=== PATIENT | female | born 1955 | race African-American/Black ===

== ENCOUNTER 2021-01-31 05:41 | Inpatient (IN) | payer OTHER ==
[~2021-01-31] VITALS: Ht 175.3 cm; Wt 150.6 kg
[~2021-01-31 05:41] MED LIST: ASPI-986 PO; LEVO25TA7 PO; LISI1TAB13 PO; METF-414 PO; PRAV10TA35 PO
[2021-01-31] MEDS ORDERED: METHYLPREDNISOLONE SOD SUCC 125 MG/2 ML VIAL IV STA (05:49)
[2021-01-31] MEDS ORDERED: EPINEPHRINE 1:1000 1 MG/ML AMP IM ONE (06:00)
[2021-01-31] MEDS ORDERED: FAMOTIDINE 20MG/2ML VIAL IV ONE (06:00)
[2021-01-31] MEDS ORDERED: MAGNESIUM 2 G PREMIX 50 ML IV ONE (06:00)
[2021-01-31] MEDS ORDERED: DIPHENHYDRAMINE 50MG/ML VIAL IV ONE (06:00)
[2021-01-31 06:16] LABS: CHLORIDE 102 mEq/L (98-107)
[2021-01-31 06:20] LABS: ETHANOL BLOOD < 10 mg/dL
[2021-01-31] MEDS ORDERED: ASPIRIN 81MG TABLET PO ONE (06:30)
[2021-01-31] MEDS ORDERED: VANCOMYCIN 1 G PREMIX 200 ML IV ONE (06:30)
[2021-01-31] MEDS ORDERED: PIPERACILLIN/TAZ 3.375G PREMIX 50 ML IV ONE (06:30)
[2021-01-31] MEDS ORDERED: FUROSEMIDE 40MG/4ML VIAL IV ONE (06:30)
[2021-01-31] MEDS ORDERED: ACETAMINOPHEN 325MG TABLET PO ONE (06:30)
[2021-01-31] MEDS ORDERED: NITROGLYCERIN OINT 1GM/INCH UDPKT TD ONE (06:30)
[2021-01-31 06:36] LABS: BASOPHILS % 0.4 % (0.0-2.0); EOSINOPHILS % 0.5 % (0.0-5.0); HEMATOCRIT. 36.1 % (36.0-48.0); HEMOGLOBIN. 11.6 g/dL (12.0-16.0); LYMPHOCYTES % 12.8 % (20.0-50.0); MEAN CORPUSCULAR HEMOGLOBIN 30.1 pg (28.0-32.0); MEAN CORPUSCULAR VOLUME 93.3 fL (81.0-99.0); MEAN PLATELET VOLUME 9.8 fl (7.4-10.4); MONOCYTES % 5.3 % (2.0-8.0); PLATELET 217 x1000/uL (130-400); RED BLOOD CELL COUNT 3.87 mill/uL (4.2-5.4); RED CELL DISTRIBUTION WIDTH 16.4 % (11.6-14.6)
[2021-01-31] MEDS ORDERED: ENOXAPARIN 150MG/ML SYR SUBCUT ONE (07:45)
[2021-01-31 08:17] LABS: CLARITY URINE CLEAR (CLEAR); COLOR URINE YELLOW (YELLOW); KETONES URINE NEGATIVE (NEGATIVE); LEUKOCYTE ESTERASE URINE NEGATIVE (NEGATIVE); NITRITE URINE NEGATIVE (NEGATIVE); OCCULT BLOOD URINE 1+ (NEGATIVE); PROTEIN URINE 3+ (NEGATIVE); SPECIFIC GRAVITY URINE 1.013 (1.005-1.030); UROBILINOGEN URINE 0.2 E.U./dL (0.2-1.0)
[2021-01-31 08:45] LABS: *AMPHETAMINES SCREEN URINE NEGATIVE (NEGATIVE); *BARBITURATES SCREEN URINE NEGATIVE (NEGATIVE); PHENCYCLIDINE URINE SCREEN NEGATIVE (NEGATIVE)
[2021-01-31 08:46] LABS: *BENZODIAZEPINES SCREEN URINE NEGATIVE (NEGATIVE); *COCAINE SCREEN URINE NEGATIVE (NEGATIVE); CANNABINOID URINE SCREEN NEGATIVE (NEGATIVE); METHADONE URINE SCREEN NEGATIVE (NEGATIVE); OPIATES URINE SCREEN NEGATIVE (NEGATIVE)
[2021-01-31 09:09] LABS: BG BASE EXCESS 0.8 mmol/L (-2.0-2.0); BG CARBOXYHEMOGLOBIN 0.3 % (0.5-1.5); BG DEOXYHEMOGLOBIN 3.4 % (0.0-5.0); BG HCO3 ACT 26.6 mmol/L (22.0-26.0); BG METHEMOGLOBIN 0.5 % (0.0-1.5); BG OXYGEN SATURATION 96.6 % (92.0-98.5); BG OXYHEMOGLOBIN 95.8 % (94.0-97.0); BG PH 7.362 (7.350-7.450); BG PO2 91.1 mmHg (75.0-100.0); BG SAMPLE SITE RIGHT RADIAL; BG TOTAL HEMOGLOBIN 11.5 g/dL (12.0-18.0); BG VENT MODE MASK - SIMPLE
[2021-01-31] MEDS ORDERED: ALBUTEROL 6.7GM HFA INHALER ORI PRN (09:30)
[2021-01-31] MEDS ORDERED: CEFTRIAXONE 1 G PREMIX 50 ML IV SCH (09:30)
[2021-01-31] MEDS ORDERED: KETOROLAC 15MG/ML VIAL IV PRN (09:30)
[2021-01-31] MEDS ORDERED: AZITHROMYCIN 500 MG in DEXT 5% WATER 250 ML IV SCH (09:30)
[2021-01-31] MEDS ORDERED: NITROGLYCERIN 0.4MG TABLET SL SL PRN (09:30)
[2021-01-31] MEDS ORDERED: ONDANSETRON HCL 4MG/2ML INJ IV PRN (09:30)
[2021-01-31] MEDS ORDERED: DOCUSATE SODIUM 100MG CAPSULE PO PRN (09:30)
[2021-01-31] MEDS ORDERED: GUAIFENESIN 200MG/10ML SUGAR FREE UDC PO PRN (09:30)
[2021-01-31] MEDS ORDERED: NA PHOS,M-B/NA PHOS,DI-BA ENEMA 118ML PR PRN (09:30)
[2021-01-31] MEDS ORDERED: MAGNESIUM/ALUMINUM HYDROXIDE/SIMETHICONE 30ML UDC PO PRN (09:30)
[2021-01-31] MEDS ORDERED: DEXTROSE 50% WATER 50ML SYRINGE IV PRN (09:30)
[2021-01-31] MEDS ORDERED: ACETAMINOPHEN 325MG TABLET PO PRN ×2 (09:30)
[2021-01-31] MEDS: INSULIN LISPRO 100 UNITS/ML SUBCUT SCH ×4 (09:50→21:50)
[2021-01-31] MEDS: BLOOD SUGAR DIAGNOSTIC STRIP TEST SCH ×4 (09:51→21:03)
[2021-01-31 10:16] LABS: FOLIC ACID (FOLATE) SERUM >20 ng/mL ng/mL (>5.38)
[2021-01-31 10:28] LABS: VITAMIN B12 SERUM 856 pg/mL (211-911)
[2021-01-31 10:30] VITALS: BP 193/70
[2021-01-31] MEDS ORDERED: ENOXAPARIN 150MG/ML SYR SUBCUT NR (11:00)
[2021-01-31] MEDS: GUAIFENESIN/DM 600MG/30MG ER TAB 12HR PO SCH ×2 (11:02→21:02)
[2021-01-31] MEDS: ZINC SULFATE 220 MG ( 50 ) CAPSULE PO SCH (11:02)
[2021-01-31] MEDS: CHOLECALCIFEROL (D3) 1000 UNIT TABLET PO SCH (11:02)
[2021-01-31] MEDS: FAMOTIDINE 20MG TABLET PO SCH ×2 (11:02→21:02)
[2021-01-31] MEDS: ASCORBIC ACID 500 MG TABLET PO SCH ×2 (11:03→21:02)
[2021-01-31] MEDS: TRAMADOL 50MG TABLET PO PRN (11:03)
[2021-01-31] MEDS: AMLODIPINE 10MG TABLET PO SCH (11:04)
[2021-01-31 12:00] VITALS: BP 189/87
[2021-01-31 12:30] VITALS: BP 129/67
[2021-01-31] MEDS: CEFTRIAXONE 1,000 MG in DEXTROSE 5% WATER 50 ML IV SCH (12:51)
[2021-01-31] MEDS: AZITHROMYCIN 500 MG in DEXT 5% WATER 250 ML IV SCH (13:59)
[2021-01-31] MEDS ORDERED: IOHEXOL-350 100 ML BOTTLE ONE (14:14)
[2021-01-31 15:51] LABS: *AMPHETAMINES SCREEN URINE NEGATIVE (NEGATIVE); *BARBITURATES SCREEN URINE NEGATIVE (NEGATIVE); *BENZODIAZEPINES SCREEN URINE NEGATIVE (NEGATIVE); *COCAINE SCREEN URINE NEGATIVE (NEGATIVE); CANNABINOID URINE SCREEN NEGATIVE (NEGATIVE); METHADONE URINE SCREEN NEGATIVE (NEGATIVE); OPIATES URINE SCREEN NEGATIVE (NEGATIVE); PHENCYCLIDINE URINE SCREEN NEGATIVE (NEGATIVE)
[2021-01-31 16:00] VITALS: BP 155/72
[2021-01-31] MEDS: CLONIDINE 0.1MG TABLET PO PRN ×2 (16:03→21:09)
[2021-01-31] MEDS ORDERED: ATOR10TA PO (16:22)
[2021-01-31] MEDS ORDERED: AMLO10TA80 PO (16:22)
[2021-01-31 20:00] VITALS: BP 173/63
[2021-01-31] MEDS: ALBUTEROL 6.7GM HFA INHALER ORI SCH ×2 (21:00→21:30)
[2021-01-31] MEDS ORDERED: ZOLPIDEM TARTRATE 5MG TABLET PO PRN (21:00)
[2021-01-31] MEDS ORDERED: ENOXAPARIN 40MG/0.4ML SYR SUBCUT SCH (21:00)
[2021-01-31] MEDS: LISINOPRIL 20MG TABLET PO SCH (21:02)
[2021-01-31 22:00] VITALS: BP 159/74
[2021-02-01] VITALS (8 sets, daily range): BP systolic 148–168; BP diastolic 68–82
[2021-02-01] MEDS ORDERED: NPH,100V SUBCUT (00:24)
[2021-02-01] MEDS ORDERED: INSU100V3 SQ (00:24)
[2021-02-01 00:25] LABS: CREATINE KINASE MB FRACTION 7.4 ng/mL (0.5-3.6)
[2021-02-01] MEDS: ALBUTEROL 6.7GM HFA INHALER ORI SCH ×4 (01:01→20:08)
[2021-02-01] MEDS: ENOXAPARIN 150MG/ML SYR SUBCUT SCH ×2 (05:09→15:19)
[2021-02-01] MEDS: CLONIDINE 0.1MG TABLET PO PRN ×3 (05:24→13:51)
[2021-02-01] MEDS: BLOOD SUGAR DIAGNOSTIC STRIP TEST SCH ×4 (05:43→21:07)
[2021-02-01 06:39] LABS: BASOPHILS % 0.1 % (0.0-2.0); HEMATOCRIT. 29.6 % (36.0-48.0); HEMOGLOBIN. 9.7 g/dL (12.0-16.0); LYMPHOCYTES % 8.4 % (20.0-50.0); MEAN CORPUSCULAR HEMOGLOBIN 30.6 pg (28.0-32.0); MEAN PLATELET VOLUME 10.8 fl (7.4-10.4); MONOCYTES % 5.2 % (2.0-8.0); NEUTROPHILS % 86.3 % (40.0-76.0); PLATELET 188 x1000/uL (130-400); RED BLOOD CELL COUNT 3.19 mill/uL (4.2-5.4); RED CELL DISTRIBUTION WIDTH 16.5 % (11.6-14.6)
[2021-02-01 06:48] LABS: CHLORIDE 100 mEq/L (98-107)
[2021-02-01] MEDS ORDERED: NPH,100V SQ (06:53)
[2021-02-01 07:04] LABS: PHOSPHORUS 3.2 mg/dL (2.5-4.9)
[2021-02-01] MEDS: INSULIN LISPRO 100 UNITS/ML SUBCUT SCH ×6 (08:19→22:07)
[2021-02-01] MEDS: CHOLECALCIFEROL (D3) 1000 UNIT TABLET PO SCH (08:20)
[2021-02-01] MEDS: LISINOPRIL 20MG TABLET PO SCH (08:21)
[2021-02-01] MEDS: AMLODIPINE 10MG TABLET PO SCH (08:21)
[2021-02-01] MEDS: FAMOTIDINE 20MG TABLET PO SCH ×2 (08:21→20:07)
[2021-02-01] MEDS: ZINC SULFATE 220 MG ( 50 ) CAPSULE PO SCH (08:21)
[2021-02-01] MEDS: ASCORBIC ACID 500 MG TABLET PO SCH ×2 (08:22→20:07)
[2021-02-01] MEDS ORDERED: ASPIRIN 325MG EC TABLET PO SCH (09:00)
[2021-02-01] MEDS ORDERED: INSULIN GLARGINE UD 100 UNITS/ML SYR SUBCUT SCH ×2 (10:00→22:00)
[2021-02-01] MEDS: GUAIFENESIN/DM 600MG/30MG ER TAB 12HR PO SCH ×2 (10:44→20:06)
[2021-02-01] MEDS ORDERED: SODIUM POLYSTYRENE SULFONATE 15 G/60 ML BOT PO NR (11:00)
[2021-02-01] MEDS: CEFTRIAXONE 1,000 MG in DEXTROSE 5% WATER 50 ML IV SCH (11:59)
[2021-02-01] MEDS: AZITHROMYCIN 500 MG in DEXT 5% WATER 250 ML IV SCH (13:51)
[2021-02-01] MEDS ORDERED: FUROSEMIDE 20MG/2ML VIAL IVP SCH (14:00)
[2021-02-01 17:35] LABS: CHLORIDE 98 mEq/L (98-107)
[2021-02-01] MEDS ORDERED: DEXAMETHASONE 4MG TABLET PO SCH (19:00)
[2021-02-01] MEDS: TRAMADOL 50MG TABLET PO PRN (20:07)
[2021-02-02] MEDS ORDERED: ASPIRIN 81MG TABLET PO SCH (09:00)
[2021-02-02] MEDS ORDERED: INSULIN GLARGINE UD 100 UNITS/ML SYR SUBCUT SCH (10:00)
== END 2021-02-02 00:15 | disposition short-term general hospital (02) | DRG 871 ==
LOC: ER 05:41 → 7WST 08:19 → ENRESERV 08:39
PROVIDERS: ADMIT Internal Medicine; ATTEND Internal Medicine
DX: A41.89 Other specified sepsis (principal); U07.1 COVID-19; J96.01 Acute respiratory failure with hypoxia; J12.82 Pneumonia due to coronavirus disease 2019; I21.4 Non-ST elevation (NSTEMI) myocardial infarction; N17.9 Acute kidney failure, unspecified; E87.2 Acidosis; Z68.42 Body mass index [BMI] 45.0-49.9, adult; E78.00 Pure hypercholesterolemia, unspecified; E78.5 Hyperlipidemia, unspecified; E11.65 Type 2 diabetes mellitus with hyperglycemia; E11.51 Type 2 diabetes mellitus with diabetic peripheral angiopathy without gangrene; E87.5 Hyperkalemia; E66.01 Morbid (severe) obesity due to excess calories; I50.9 Heart failure, unspecified; I11.0 Hypertensive heart disease with heart failure; E03.9 Hypothyroidism, unspecified; K44.9 Diaphragmatic hernia without obstruction or gangrene; Z87.891 Personal history of nicotine dependence; Z90.49 Acquired absence of other specified parts of digestive tract; Z79.4 Long term (current) use of insulin
CPT/HCPCS: 36415; 36600; 71045; 71275; 80053; 80061; 80305; 80320; 81003; 82375; 82550; 82553; 82607; 82746; 82805; 82962; 83036; 83540; 83550; 83605; 83735; 83880; 84100; 84484; 85025; 85379; 93005; 93970; 94640; 99291; J0456; J0696; J1200; J1650; J1815; J1885; J1940; J2543; J2930; J3370; J3475; J3490; J7040; J7060; J8540; Q9967; U0003; U0005; G0480

== ENCOUNTER 2022-01-09 17:38 | Emergency (ER) | payer OTHER ==
[~2022-01-09] VITALS: Ht 175.3 cm; Wt 113.0 kg
[~2022-01-09 17:38] MED LIST changes: +AMLO10TA80 PO; +ATOR10TA PO; -METF-414 PO; +NPH,100V SQ; +NPH,100V SUBCUT; -PRAV10TA35 PO
[2022-01-09 18:39] LABS: BASOPHILS % 0.2 % (0.0-2.0); EOSINOPHILS % 1.2 % (0.0-5.0); HEMOGLOBIN. 7.9 g/dL (12.0-16.0); LYMPHOCYTES % 9.3 % (20.0-50.0); MEAN CORPUSCULAR HEMOGLOBIN 24.3 pg (28.0-32.0); MEAN CORPUSCULAR VOLUME 76.9 fL (81.0-99.0); MEAN PLATELET VOLUME 8.2 fl (7.4-10.4); MONOCYTES % 6.1 % (2.0-8.0); NEUTROPHILS % 83.2 % (40.0-76.0); PLATELET 519 x1000/uL (130-400); RED BLOOD CELL COUNT 3.25 mill/uL (4.2-5.4); RED CELL DISTRIBUTION WIDTH 19.6 % (11.6-14.6)
[2022-01-09 18:43] LABS: CHLORIDE 99 mEq/L (98-107)
[2022-01-09] MEDS ORDERED: SODIUM CHLORIDE 0.9% 1000ML BAG (SEPSIS BOLUS) IV ONE (19:00)
[2022-01-09] MEDS ORDERED: VANCOMYCIN 1G PREMIX 200 ML IV ONE (19:00)
[2022-01-09] MEDS ORDERED: PIPERACILLIN/TAZ 3.375G PREMIX 50 ML IV ONE (19:00)
[2022-01-09] MEDS ORDERED: MORPHINE SULFATE 4 MG/ML CPJ (NOT FOR IM USE) IV ONE (20:30)
[2022-01-09] MEDS ORDERED: CLINDAMYCIN 300 MG in DEXTROSE 5% WATER 50 ML IV ONE (21:00)
[2022-01-09] MEDS: VANCOMYCIN 1GM PMX (XELLIA) 200 ML IV SCH ×2 (21:15→22:35)
[2022-01-09 22:00] VITALS: BP 136/66
== END 2022-01-09 22:26 | disposition short-term general hospital (02) ==
LOC: ER 17:38
DX: A41.9 Sepsis, unspecified organism (principal); I96 Gangrene, not elsewhere classified; M72.6 Necrotizing fasciitis; R65.20 Severe sepsis without septic shock; E11.52 Type 2 diabetes mellitus with diabetic peripheral angiopathy with gangrene; E11.65 Type 2 diabetes mellitus with hyperglycemia; L03.115 Cellulitis of right lower limb; R00.0 Tachycardia, unspecified; I10 Essential (primary) hypertension; D75.839 Thrombocytosis, unspecified; R19.7 Diarrhea, unspecified; D64.9 Anemia, unspecified; Z20.822 Contact with and (suspected) exposure to COVID-19; Z79.4 Long term (current) use of insulin; Z89.432 Acquired absence of left foot
CPT/HCPCS: 36415; 71045; 73590; 80053; 83605; 84145; 85025; 87040; 87076; 87426; 96365; 96367; 99291; J2270; J2543; J3370; J3490; J7030; J7060; 96366